=== PATIENT | female | born 1975 | race Caucasian/White ===

== ENCOUNTER → 2018-11-11 16:01 | Outpatient (CLI) | payer OTHER, SELFPAY ==
--- NOTE | 2018-11-11 16:05 | BI_ITS ---
MAMMOGRAPHY - BILATERAL SCREENING REASON FOR EXAM: Female, 43 years old. Routine annual screening examination. PERTINENT HISTORY: Mother with breast cancer. TECHNIQUE: Digital bilateral breast marianela (3D mammographic acquisition) in the CC and MLO projections. 2-D mediolateral oblique (MLO) and craniocaudad (CC) views of both breasts were obtained. CAD: Full Field Digital Mammography with Computer Added Detection was performed. COMPARISON: Comparison is made with prior study dated April 04, 2015 and January 18, 2014. FINDINGS: Breast Composition: The breasts are heterogeneously dense, which may obscure small masses. There are no dominant masses or suspicious calcifications. No other significant abnormalities are identified. There has been no significant change since the prior study. BI/SCREENING MAMM (CAD), BILAT IMPRESSION: Stable bilateral screening mammogram. Yearly follow-up mammogram recommended. (A) ASSESSMENT CATEGORY: BIRADS Category 1: Negative. A letter regarding these results will be sent to the patient by the facility within 30 days. Approximately 10% of breast cancers are not detected by mammography. A normal mammogram should not delay biopsy of a clinically suspicious abnormality. [id number] Electronically Signed: Jamshid Harrison, at 8:33 EDT , Service support ,
== END ==
PROVIDERS: Family Provider Family Medicine; PCP Family Medicine; Referring Provider Obstetrics & Gynecology; Visit Provider Obstetrics & Gynecology
DX: Z12.31 Encounter for screening mammogram for malignant neoplasm of breast (principal)
CPT/HCPCS: 77063; 77067

== ENCOUNTER 2021-08-11 16:04 | Outpatient (CLI) | payer OTHER, SELFPAY ==
--- NOTE | 2021-08-11 16:05 | BI_ITS ---
MAMMOGRAPHY - BILATERAL SCREENING REASON FOR EXAM: Female, 46 years old. Routine annual screening examination. PERTINENT HISTORY: Mother with breast cancer. TECHNIQUE: Digital bilateral breast balta (3D mammographic acquisition) in the CC and MLO projections. 2-D mediolateral oblique (MLO) and craniocaudad (CC) views of both breasts were obtained. CAD: Full Field Digital Mammography with Computer Added Detection was performed. COMPARISON: Comparison is made with prior study dated 11/11/2018 and 04/04/2015. FINDINGS: Breast Composition: The breasts are extremely dense, which lowers the sensitivity of mammography. There are no dominant masses or suspicious calcifications. Stable small benign-appearing bilateral axillary lymph nodes. No other significant abnormalities are identified. There has been no significant change since the prior study. BI/SCRN MAMM (CAD)W/BALTA BILAT IMPRESSION: Stable bilateral screening mammogram. Yearly follow-up mammogram recommended. (A) ASSESSMENT CATEGORY: BIRADS Category 2: Benign. A letter regarding these results will be sent to the patient by the facility within 30 days. Approximately 10% of breast cancers are not detected by mammography. A normal mammogram should not delay biopsy of a clinically suspicious abnormality. [id number] Electronically Signed: Jmashid Harrison MD at 8:10 EST ,
== END 2021-08-11 23:59 | disposition home or self-care (01) ==
LOC: OPBI 16:04
PROVIDERS: PCP Family Medicine; Referring Provider Obstetrics & Gynecology; Visit Provider Obstetrics & Gynecology
DX: Z12.31 Encounter for screening mammogram for malignant neoplasm of breast (principal); Z80.3 Family history of malignant neoplasm of breast
CPT/HCPCS: 77063; 77067

== ENCOUNTER → 2022-08-28 | Outpatient (CLI) | payer OTHER, SELFPAY ==
[2022-08-28 16:22] LABS: Follicle Stimulating Hormone 83.4 mIU/mL; Luteinizing Hormone 36.6 mIU/mL
== END | disposition home or self-care (01) ==
LOC: WOBLAB 14:38
PROVIDERS: PCP Family Medicine; Visit Provider Student in an Organized Health Care Education/Training Program
DX: R87.618 Other abnormal cytological findings on specimens from cervix uteri (principal)
CPT/HCPCS: 36415; 83001; 83002

== ENCOUNTER → 2022-08-28 | Outpatient (CLI) | payer OTHER, SELFPAY ==
--- NOTE | 2022-08-28 14:04 | BI_ITS ---
MAMMOGRAPHY - BILATERAL SCREENING REASON FOR EXAM: Female, 47 years old. Routine annual screening examination. PERTINENT HISTORY: Mother with breast cancer. TECHNIQUE: Digital bilateral breast balta (3D mammographic acquisition) in the CC and MLO projections. 2-D mediolateral oblique (MLO) and craniocaudad (CC) views of both breasts were obtained. CAD: Full Field Digital Mammography with Computer Added Detection was performed. COMPARISON: Comparison is made with prior study dated 08/11/2021 and 11/11/2018. FINDINGS: Breast Composition: The breasts are extremely dense, which lowers the sensitivity of mammography. There are no dominant masses or suspicious calcifications. No other significant abnormalities are identified. There has been no significant change since the prior study. BI/SCRN MAMM (CAD)W/BALTA BILAT IMPRESSION: Stable bilateral screening mammogram. Yearly follow-up mammogram recommended. (A) ASSESSMENT CATEGORY: BIRADS Category 1: Negative. A letter regarding these results will be sent to the patient by the facility within 30 days. Approximately 10% of breast cancers are not detected by mammography. A normal mammogram should not delay biopsy of a clinically suspicious abnormality. [id number] Electronically Signed: Jamshid Harrison MD at 15:15 EST ,
== END | disposition home or self-care (01) ==
LOC: OPBI 14:03
PROVIDERS: PCP Family Medicine; Visit Provider Student in an Organized Health Care Education/Training Program
DX: Z12.31 Encounter for screening mammogram for malignant neoplasm of breast (principal); Z80.3 Family history of malignant neoplasm of breast
CPT/HCPCS: 77063; 77067

== ENCOUNTER → 2022-09-11 | Outpatient (CLI) | payer OTHER, SELFPAY ==
[2022-09-11 11:55] LABS: LDH 153 U/L (84-246)
[2022-09-12 12:38] LABS: AFP, Tumor Marker 6.6 ng/mL (0.0-6.4); Cancer Antigen 125 9.1 U/mL (0.0-38.1); Carbohydrate AG 19-9 7 U/mL (0-35)
== END | disposition home or self-care (01) ==
LOC: WOBLAB 10:49
PROVIDERS: PCP Family Medicine; Visit Provider Student in an Organized Health Care Education/Training Program
DX: N83.291 Other ovarian cyst, right side (principal)
CPT/HCPCS: 36415; 82105; 82378; 83615; 86301; 86304

== ENCOUNTER → 2022-10-09 | Outpatient (CLI) | payer OTHER, SELFPAY | END | disposition home or self-care (01) | LOC: WOBLAB 12:04 | PROVIDERS: PCP Family Medicine; Visit Provider Student in an Organized Health Care Education/Training Program | DX: Z01.818 Encounter for other preprocedural examination (principal); N83.202 Unspecified ovarian cyst, left side; N83.291 Other ovarian cyst, right side | CPT/HCPCS: 36415; 82105 ==

== ENCOUNTER 2022-12-10 09:28 | Day surgery (SDC) | payer OTHER, SELFPAY ==
[2022-12-04 16:30] LABS: Hemoglobin 12.6 g/dL (12.0-15.0); Mean Corp Hgb Conc 33.2 g/dL (32-36); Mean Corpuscular Hgb 29.9 pg (27.0-32.0); Mean Platelet Vol. 10.3 fl (6.2-12.0); Platelet Count 228 K/mm3 (150-450); RBC Distribution Width CV 12.8 % (11.6-14.6); RBC Distribution Width SD 42.1 fl (35.1-43.9); Red Blood Count 4.22 M/mm3 (4.2-5.4); White Blood Count 5.6 K/mm3 (4.4-11.0)
--- NOTE | 2022-12-10 06:59 | HP.PCM.OB_ITS ---
History and Physical Date of Admission: 12/10/22 HPI: 47-year-old female plan for hysteroscopy, dilation curettage, laparoscopic ovarian cystectomy, possible bilateral oophorectomy for endometrial cells on Pap and persistent bilateral ovarian cyst. Denies headache or vision changes, chest pain or shortness of breath, nausea or vomiting, diarrhea constipation, fevers or chills. [employer] history: G2, P2 Medical history: 1. Migraines Surgical history: 1. LEEP in 2002 2. [place] tooth extraction 1990. Medications: Progesterone 2. Rizatriptan Allergies: Imitrex, iodine, shellfish Family history: Denies history of blood clots or bleeding disorders, noncontributory Social history: Denies tobacco, alcohol, drug use Review of system: Negative otherwise stated above Physical exam: Blood pressure General: No acute distress HEENT: Normal cephalic/atraumatic, PERRLA Cardiac: Regular rate and rhythm Respiratory: Clear to auscultation bilaterally Abdomen: Soft, nontender Extremities no edema Neurologic: Cranial nerves II through XII grossly intact, no focal deficits Musculoskeletal: Moves all extremities equally Assessment and plan: 47-year-old female plan for hysteroscopy, dilation curettage, laparoscopic ovarian cystectomy, possible bilateral oophorectomy for endometrial cells on Pap and persistent bilateral ovarian cysts. All risk, benefits, alternatives discussed the patient. Risk include are not limited to: Risk of bleeding the point of transfusion, infection, injury to surrounding tissue including bowel/bladder potentially requiring prolonged Ladd catheter use/major abdominal vessels, VTE, ICU admission. Patient aware and consented.
[2022-12-10 10:01] VITALS: BP 112/75; PULSE 74; RESP 16; TEMP 36.6; O2SAT 99; BMI 20.4
--- NOTE | 2022-12-10 10:02 | PCM.OPRPT ---
Report of Operation Date of Procedure: 12/10/22 Pre-Operative Diagnosis: Endometrial cells on Pap test, persistent bilateral ovarian cysts. Post-Operative Diagnosis: Endometrial cells on Pap test, persistent bilateral ovarian cysts. Surgery/Procedure Performed:: Hysteroscopy, dilation and curettage, laparoscopic ovarian cystectomy Description of Surgical Findings:: Normal-appearing external genitalia. Thin endometrium without masses or polyps. Bilateral ovaries adhered posteriorly against the pelvic sidewall and the posterior cul-de-sac. Adhesions of ovaries have talked fallopian tubes posteriorly as well. Areas of endometriosis in the cul-de-sac noted. Mucous appearing cyst in the posterior cul-de-sac, with clear fluid surrounding. Very small clear walled cyst right ovary. Left ovary with clear cyst in the outer portion of the ovary. Surgeon: Tamie Cardenas wanigan clerk: Pal Monique Type of Anesthesia: General Specimen's removed: Endometrial curettings, ovarian and pelvic cysts, pelvic fluid for cytology Estimated Blood Loss (mL): 5 cc Fluids Replaced: 800cc Description of Procedure: Indication/risk/benefits: ?47-year-old female plan for hysteroscopy, dilation curettage, laparoscopic ovarian cystectomy, possible bilateral oophorectomy for endometrial cells on Pap and persistent bilateral ovarian cysts. All risk, benefits, alternatives discussed the patient.? Risk include are not limited to: Risk of bleeding the point of transfusion, infection, injury to surrounding tissue including bowel/bladder potentially requiring prolonged Ladd catheter use/major abdominal vessels, VTE, ICU admission.? Patient aware and consented. Procedure: Patient taken to the operating room placed under general anesthesia. Patient placed in the dorsal lithotomy position prepped and draped in usual sterile fashion. Ladd catheter placed. Weighted second placed posterior vagina and Main retractor used to visualize cervix. Anterior lip of cervix grasped with Allis clamp. Cervix gradually dilated. Hysteroscope placed through the cervical canal and inspection of the endometrial cavity was completed with findings noted above. Hysteroscope removed. Endometrial curettings completed in 360 degree manner. Sargis manipulator placed. Weighted speculum removed and Allis clamp removed. Gloves changed and attention turned to the anterior abdominal wall. Infraumbilical incision made with scalpel and peritoneum entered under direct visualization. Abdomen insufflated. Right and left lower quadrant trocars placed direct visualization. Findings noted above. Left ovarian cyst wall grasped and removed using laparoscopic scissors. This small right ovarian cyst grasped and incised, unable to remove due to small size. The cyst removed through trocars. Cyst in the posterior cul-de-sac placed into a Endo Catch bag and removed. Pelvic fluid suctioned. Hemostasis confirmed. Insufflation stopped. Trocars removed. Skin closed with subcuticular stitch. Ladd catheter and uterine manipulator removed. At the end of the procedure all needle, lap, sponge counts were correct. Urine output: 200 cc clear urine Complications None
--- NOTE | 2022-12-10 10:03 | DCINST_ITS ---
Discharge Instructions Diet Discharge Diet: No restrictions Activity Discharge Activity: Return to Normal Activity and May Shower May resume sexual activity in: 2 weeks Weight Bearing Status: Weight bearing as tolerated Lifting Restrictions: No greater than 15 pounds Dressing / Incision Call your doctor if your incision/area has: Continuous Slow Oozing, Increased Pain/ Swelling, Increased Redness and Foul Smelling Discharge Call your doctor if you observe: Fever of 101 or Higher, Inability to urinate, Using more than 1 pad per hour, Shortness of breath, Chest pain, Calf discomfort and Uncontrolled pain Cleanse incision/area with: Soap & Water and Keep Dressing Clean & Dry Follow Up Care Please Follow Up With: Tamie Cardenas DO When: 2 weeks post operative visit. Test Results: Test results from this visit will be discussed in further detail at your follow- up appointment, if applicable. Discharge Plan Admission Primary Reason for Your Visit: D&C, laparoscopy Attending Provider: Tamie Cardenas Primary Care Provider: Victorino Dawson Discharge Orders/Prescriptions Prescriptions: New oxycodone 5 mg tablet 5 mg PO Q6H PRN (Reason: pain (scale score 7-10)) 2 Days Qty: 4 0RF Continued progesterone micronized 200 mg capsule 200 mg PO QMONTH Label Comments: TAKE 1 CAPSULE BY MOUTH FIRST 10 DAYS OF THE MONTH Rx Instructions: take 10 days, off for the rest of the month started on the of the month rizatriptan 5 mg Tablet 5 mg PO Q2H PRN (Reason: Headache) Rx Instructions: do not exceed 6 doses per 24 hrs DSA-omkrjvbjosgnh-qbdnpmj-caff Tablet 325 tab PO DAILY vit D3-folic ldpc-A3-E0-B12 2,000-800-0.32 unit-mcg-mg Tablet 1 tab PO DAILY Referrals / Follow Up: Victorino Dawson DO [Primary Care Provider] - Disposition Disposition (needs filled in before D/C Order can be placed): Home, Self Care
[2022-12-10] MEDS: Lactated Ringers 1,000 ML 15 ML IV ×2 (10:08→12:33)
[2022-12-10 10:16] LABS: Internal QC Validated? YES +Cl - CLEAR BKGD; Pregnancy, Urine Negative Negative
--- NOTE | 2022-12-10 11:05 | EMB_PTH ---
PATIENT: AYUSH GRANADOS LOC: [facility] [place] U#:[id number] AGE/SX: 47/F ROOM: RE12/10/[address]: Dr. Tamie Cardenas DO : 1975 BED: DIS: 12/10/2022 SPEC #: [id number] RECD: 12/10/22 12:47 STATUS: JACKIE REGeno #: [id number] JULIA: 12/10/22 11:[address]: Tamie Cardenas DEPT: SURGICAL PATHOLOGY RECD BY: Sil Arzola ENTERED: 12/10/22 13:02 SP TYPE: ENDOM BX/C REYMUNDO DR: Dr. Victorino Dawson DO Tissues: A - Endometrium, NOS OVARIAN CYST Procedures: Surgery Specimen Level IV HEADER OPERATION: Laparoscopic ovarian cystectomy, Hysteroscopy D & C PRE-OP DIAGNOSIS: Endometrial cells on pap, persistent bilateral ovarian cysts TISSUE SUBMITTED: A ? Endometrial curettings, B ? Pelvic and ovarian cyst MICROSCOPIC DIAGNOSIS A. Endometrial curettings: Consistent with inactive endometrium. B. Pelvic and ovarian cyst, excision: Consistent with simple mesothelial cyst and changes consistent with endometriosis. ANNA:inez 12/11/2022 COMMENT Correlation with clinical findings and appropriate follow up are necessary. Please correlate with corresponding cytology [id number]. MICROSCOPIC DESCRIPTION Slides are reviewed. GROSS DESCRIPTION A - Received in fixative is one container labeled with the patient's name and designated endometrial curettings. The specimen consists of multiple fragments of hemorrhagic soft tissue mixed with mucoid tissue that in aggregate measure 1.0 x 0.5 x <0.1 cm. The specimen is totally submitted in one cassette. B - Received in fixative is one container labeled with the patient's name and designated pelvic and ovarian cyst. The specimen consists of multiple pieces of ritter soft tissue consistent with cyst wall that in aggregate measure 2.0 x 1.5 x 0.1 cm. A few fragments of blood clots are also noted. The specimen is totally submitted in one cassette. / ANNA:inez 12/10/2022 TC:5 CPT: 78813 x2
--- NOTE | 2022-12-10 11:43 | FLU_PTH ---
PATIENT: AYUSH GRANADOS LOC: [facility] [place][id number] AGE/SX: 47/F ROOM: RE12/10/[address]: Dr. Tamie Cardenas DO : 1975 BED: DIS: 12/10/2022 SPEC #: [id number] RECD: 12/10/22 12:36 STATUS: JACKIE REGeno #: [id number] JULIA: 12/10/22 11:[address]: Tamie Cardenas DEPT: CYTOLOGY RECD BY: Sil Arzola ENTERED: 12/10/22 12:36 SP TYPE: Fluid OTHR DR: Dr. Victorino Dawson DO Tissues: Pelvis, NOS Procedures: Special Stain Group II Surgery Specimen Level IV Cytospin Fluid HEADER OPERATION: Not noted PRE-OP DIAGNOSIS: Endometrial cells on pap, persistent bilateral ovarian cysts TISSUE SUBMITTED: Pelvic fluid for cytology DIAGNOSIS CYTOLOGY Pelvic fluid for cytology (cytospin and cell block): Negative for malignant cells. See comment. SJ:inez 12/11/2022 COMMENT Please also refer to additional surgical specimen [id number]. CYTOLOGY STUDY Slides are reviewed. CYTOLOGY GROSS Received is 10 ml of red cloudy fluid labeled with the patient's name and and designated per the requisition as pelvic. Submitted for cytology preparation including cell block. / inez 12/10/2022 TC:4 CPT: 60403, 75702
[2022-12-10 12:04] VITALS: BP 105/91; BP 112/75; PULSE 71; RESP 16; TEMP 36.2; O2SAT 97
[2022-12-10 12:09] LABS: Cytology, Body Fluid / CSF SEE PATHOLOGY REPORT
[2022-12-10 12:15] VITALS: BP 112/75; BP 116/48; PULSE 63; RESP 16; O2SAT 99
[2022-12-10 12:30] VITALS: BP 112/75; BP 131/79; PULSE 67; RESP 18; O2SAT 100
[2022-12-10 12:43] VITALS: BP 104/81; BP 112/75; PULSE 67; RESP 18; TEMP 36.6; O2SAT 97
[2022-12-10 13:38] VITALS: BP 112/75; BP 141/61; PULSE 66; RESP 18; TEMP 5447.7; TEMP 9838; O2SAT 100
[2022-12-10] MEDS: Acetaminophen 500 MG Tablet 1000 MG PO (13:49)
== END 2022-12-10 13:56 | disposition home or self-care (01) ==
LOC: SDC 09:29 → AC 09:30
PROVIDERS: Anesthesiology; PCP Family Medicine; Referring Provider Student in an Organized Health Care Education/Training Program; Visit Provider Student in an Organized Health Care Education/Training Program
PROC: (CPT 58662; 2022-12-10 10:50)
DX: N83.201 Unspecified ovarian cyst, right side (principal); N83.202 Unspecified ovarian cyst, left side; N80.329 Endometriosis of the posterior cul-de-sac, unspecified depth
CPT/HCPCS: 58662; 58558; 00840; 36415; 81025; 85027; 86850; 86900; 86901; 88108; 88305; 88313; J7120; J2405

== ENCOUNTER → 2022-12-25 | Outpatient (CLI) | payer OTHER, SELFPAY ==
[2022-12-25 16:10] LABS: ALB/GLOB Ratio 1.2 RATIO (0.9-2.4); AST(SGOT) 10 U/L (15-37); Alanine Aminotransfer ALT/SGPT 14 U/L (13-56); Albumin, Serum 3.9 g/dL (3.2-5.0); Alkaline Phosphatase 85 U/L (45-117); Anion Gap 4 (5-15); BUN 8 mg/dL (7-18); BUN/Creat Ratio 11.1 RATIO (10-20); Calcium,Total 8.7 mg/dL (8.5-10.1); Chloride 107 mmol/L (98-107); Creatinine, Serum 0.72 mg/dL (0.55-1.02); EST Glomerular Filtration Rate 91 mL/min (>60); Est Glom Filt Rate - Afr Amer 111 mL/min (>60); Globulin 3.2 g/dL (2.2-4.2); Glucose 84 mg/dL (74-106); Potassium 3.7 mmol/L (3.5-5.1); Protein, Total 7.1 g/dL (6.4-8.2); Sodium Level 139 mmol/L (136-145)
[2022-12-27 07:07] LABS: AFP, Tumor Marker 6.2 ng/mL (0.0-6.4)
== END | disposition home or self-care (01) ==
LOC: LAB 15:18
PROVIDERS: PCP Family Medicine; Referring Provider Student in an Organized Health Care Education/Training Program; Visit Provider Student in an Organized Health Care Education/Training Program
DX: N83.201 Unspecified ovarian cyst, right side (principal)
CPT/HCPCS: 36415; 80053; 82105